=== PATIENT | female | born 1955 | race Caucasian/White ===

== ENCOUNTER 2018-12-04 13:57 | Emergency (ER) | payer OTHER ==
[~2018-12-04] VITALS: Ht 162.6 cm; Wt 72.6 kg
[~2018-12-04 13:57] MED LIST: AURALGAN EAR DR14 ML OT; PRILOSEC10 MG; ZITHROMAX TRI-500 MG PO
[2018-12-04] MEDS ORDERED: PREMARIN0.45 MG (14:31)
== END 2018-12-04 17:32 | disposition home or self-care (01) ==
LOC: ER 13:57
DX: S93.492A Sprain of other ligament of left ankle, initial encounter (principal); X50.1XXA Overexertion from prolonged static or awkward postures, initial encounter; Y93.89 Activity, other specified; Y92.89 Other specified places as the place of occurrence of the external cause; Y99.8 Other external cause status

== ENCOUNTER 2019-06-03 14:07 | Inpatient (IN) | payer OTHER ==
[~2019-06-03] VITALS: Ht 162.6 cm; Wt 159.0 kg
[~2019-06-03 14:07] MED LIST changes: +PREMARIN0.45 MG
[2019-06-09] MEDS ORDERED: ZANTAC300 MG PO (11:12)
[2019-06-09] MEDS ORDERED: FLAGYL500MG PO (11:12)
[2019-06-09] MEDS ORDERED: CEFDINIR300 MG PO (11:12)
== END 2019-06-09 11:46 | disposition home or self-care (01) | DRG 343 ==
LOC: ER 14:07 → SURH 20:45 → SEC-K 20:45 → O/R 21:19 → SURH 23:55
PROVIDERS: ADMIT Surgery
PROC: 0D9J00Z Drainage of Appendix with Drainage Device, Open Approach (ICD-10-PCS; 2019-06-03)
PROC: BW21ZZZ Computerized Tomography (CT Scan) of Abdomen and Pelvis (ICD-10-PCS; 2019-06-03)
PROC: 3E0F7GC Introduction of Other Therapeutic Substance into Respiratory Tract, Via Natural or Artificial Opening (ICD-10-PCS; 2019-06-03)
PROC: 0DTJ0ZZ Resection of Appendix, Open Approach (ICD-10-PCS; principal; 2019-06-03 21:00)
PROC: BW21Y0Z Computerized Tomography (CT Scan) of Abdomen and Pelvis using Other Contrast, Unenhanced and Enhanced (ICD-10-PCS; 2019-06-08)
DX: K35.31 Acute appendicitis with localized peritonitis and gangrene, without perforation (principal); K35.32 Acute appendicitis with perforation, localized peritonitis, and gangrene, without abscess; K66.0 Peritoneal adhesions (postprocedural) (postinfection); B96.1 Klebsiella pneumoniae [K. pneumoniae] as the cause of diseases classified elsewhere; B95.4 Other streptococcus as the cause of diseases classified elsewhere; B96.3 Hemophilus influenzae [H. influenzae] as the cause of diseases classified elsewhere

== ENCOUNTER 2023-10-14 12:34 | Outpatient (CLI) | payer OTHER ==
[~2023-10-14 12:34] MED LIST changes: +CEFDINIR300 MG PO; +FLAGYL500MG PO; +ZANTAC300 MG PO
== END 2023-10-14 12:37 | disposition home or self-care (01) ==
LOC: RAD 12:34
DX: M99.01 Segmental and somatic dysfunction of cervical region (principal); M99.02 Segmental and somatic dysfunction of thoracic region; M99.03 Segmental and somatic dysfunction of lumbar region; M99.04 Segmental and somatic dysfunction of sacral region; M99.05 Segmental and somatic dysfunction of pelvic region

== ENCOUNTER 2025-03-31 10:11 | Outpatient (CLI) | payer OTHER | END 2025-03-31 10:16 | disposition home or self-care (01) | LOC: SONOGRAMA 10:11 | PROVIDERS: ATTEND Physical Medicine & Rehabilitation | DX: M25.511 Pain in right shoulder (principal) ==